=== PATIENT | male | born 1985 | race Caucasian/White ===

== ENCOUNTER 2021-06-16 07:41 | Emergency (ER) | payer OTHER ==
[~2021-06-16] VITALS: Ht 175.3 cm; Wt 81.0 kg
[2021-06-16] MEDS ORDERED: AMOX-424 MT (08:13)
[2021-06-16] MEDS ORDERED: DEXAMETHASONE 10 MG/ML VIAL IM ONE (08:15)
[2021-06-16] MEDS ORDERED: CEFTRIAXONE SODIUM 1 G/VIAL IM ONE (08:15)
[2021-06-16] MEDS ORDERED: IBUPROFEN 600MG TABLET PO ONE (08:45)
[2021-06-16 08:47] VITALS: BP 115/82
[2021-06-16] MEDS ORDERED: LIDOCAINE HCL 1% 20ML VIAL (Pyxis) INJ INFIL ONE (09:00)
== END 2021-06-16 09:31 | disposition home or self-care (01) ==
LOC: ER 07:41
DX: K04.7 Periapical abscess without sinus (principal)
CPT/HCPCS: 96372; 99284; J0696; J1100

== ENCOUNTER 2021-06-24 12:23 | Emergency (ER) | payer OTHER ==
[~2021-06-24] VITALS: Ht 175.3 cm; Wt 86.0 kg
[~2021-06-24 12:23] MED LIST: AMOX-424 MT
[2021-06-24 12:41] VITALS: BP 118/80
[2021-06-24] MEDS ORDERED: CLIN-116 MT (15:43)
[2021-06-24] MEDS ORDERED: HYDR-4001 MT (15:43)
[2021-06-24] MEDS ORDERED: CLIN300C12 MT (15:43)
== END 2021-06-24 16:38 | disposition home or self-care (01) ==
LOC: ER 12:23
DX: K04.7 Periapical abscess without sinus (principal)
CPT/HCPCS: 99281; 99283

== ENCOUNTER 2021-06-25 02:54 | Emergency (ER) | payer OTHER ==
[~2021-06-25] VITALS: Ht 175.3 cm; Wt 86.0 kg
[~2021-06-25 02:54] MED LIST changes: +CLIN-116 MT; +CLIN300C12 MT; +HYDR-4001 MT
[2021-06-25] MEDS ORDERED: MORPHINE SULFATE 10 MG/ML CPJ IV ONE (05:30)
[2021-06-25] MEDS ORDERED: DEXAMETHASONE 4MG/ML 1ML VIAL IV ONE (05:30)
[2021-06-25] MEDS ORDERED: PIPERACILLIN/TAZ 3.375G PREMIX 50 ML IV ONE (05:30)
[2021-06-25 06:02] LABS: EOSINOPHILS % 2.7 % (0.0-5.0); HEMOGLOBIN. 14.2 g/dL (14.0-18.0); LYMPHOCYTES % 21.9 % (20.0-50.0); MEAN CORPUSCULAR VOLUME 91.5 fL (80.0-94.0); MEAN PLATELET VOLUME 9.5 fl (7.4-10.4); MONOCYTES % 9.2 % (2.0-8.0); NEUTROPHILS % 65.2 % (40.0-76.0); PLATELET 203 x1000/uL (130-400); RED BLOOD CELL COUNT 4.59 mill/uL (4.7-6.1); RED CELL DISTRIBUTION WIDTH 13.8 % (11.6-14.6)
[2021-06-25 06:10] LABS: CHLORIDE 109 mEq/L (98-107)
[2021-06-25] MEDS ORDERED: LIDOCAINE HCL/EPINEPHRINE 1%-EPI 1:100,000 50 ML VIAL INFIL ONE (07:00)
[2021-06-25] MEDS ORDERED: LIDOCAINE HCL/EPINEPHRINE 1%-EPI 1:100,000 20 ML VIAL INFIL ONE (07:15)
[2021-06-25] MEDS ORDERED: IOHEXOL-300 100 ML BOTTLE ONE (08:18)
[2021-06-25] MEDS ORDERED: FENTANYL CITRATE/PF 50MCG/ML 2ML VIAL IV STA (09:23)
[2021-06-25] MEDS ORDERED: KETAMINE HCL 50 MG/ML 10ML IV STA (09:23)
[2021-06-25 11:46] VITALS: BP 122/74
== END 2021-06-25 11:47 | disposition home or self-care (01) ==
LOC: ER 02:54
DX: K08.89 Other specified disorders of teeth and supporting structures (principal)
CPT/HCPCS: 36415; 70487; 71045; 80048; 80076; 83605; 84145; 85025; 87040; 93005; 96365; 96366; 96375; 99285; J1100; J2270; J2543; J3010; J3490; Q9967